=== PATIENT | male | born 1955 ===

== ENCOUNTER → 2017-07-15 | Outpatient (CLI) | payer OTHER ==
[~2017-07-15] MED LIST: CPR500T PO; KETO-22 PO; [UNRECOGNIZED DRUG - REMARK]
--- NOTE | 2017-07-15 10:30 | Diagnostic Imaging Report ---
PATIENT HISTORY: Back injury and bilateral shoulder injuries. TECHNIQUE: Two views of the right shoulder. COMPARISON: MRI from 10/18/2009. FINDINGS: No acute fracture or dislocation is seen in the right shoulder. Alignment appears normal. The imaged joint spaces are preserved. Mild irregularity is seen along the greater tuberosity, may represent rotator cuff injury. IMPRESSION: No acute osseous abnormality is seen in the right shoulder. Dictated by: Dictated on workstation # [id number]
--- NOTE | 2017-07-15 10:38 | Diagnostic Imaging Report ---
INDICATION: Back injury with bilateral shoulder injuries. TECHNIQUE: 3 views of the lumbar spine COMPARISON: None FINDINGS: There are 5 lumbar type vertebral bodies. There is minimal grade 1 retrolisthesis at L3-L4. Moderate disc height loss is seen at L5-S1. Small endplate osteophytes are seen at multiple levels, most pronounced at L4-L5. There is moderate facet arthropathy at the lower lumbar spine. The vertebral body heights are preserved. No acute fracture or dislocation is seen. IMPRESSION: 1. Ljrq-ek-lwadgblq degenerative changes in the lumbar spine with no acute osseous abnormality seen. Dictated by: Dictated on workstation # [id number]
== END ==
LOC: RAD 09:20
PROVIDERS: ATTEND Neuromusculoskeletal Medicine, Sports Medicine
DX: Z02.71 Encounter for disability determination (principal); S49.92XA Unspecified injury of left shoulder and upper arm, initial encounter; S49.91XA Unspecified injury of right shoulder and upper arm, initial encounter; S39.92XA Unspecified injury of lower back, initial encounter; M47.816 Spondylosis without myelopathy or radiculopathy, lumbar region
CPT/HCPCS: 72100; 73030

== ENCOUNTER 2021-04-19 10:37 | Emergency (ER) | payer MEDICARE ==
[~2021-04-19] VITALS: Ht 162 cm; Wt 68.0 kg
[2021-04-19 11:26] LABS: BASOPHILS % (AUTO) 0 % (0-10); EOSINOPHILS % (AUTO) 0 % (0-10); MONOCYTES # (AUTO) 0.4 10^3/uL (0.0-1.0); MONOCYTES % (AUTO) 7 % (0-12)
[2021-04-19 11:28] LABS: HEMATOCRIT 44 % (40-54); HEMOGLOBIN 14.9 g/dL (13.3-17.7); LYMPHOCYTES # (AUTO) 0.7 10^3/uL (1.0-4.0); LYMPHOCYTES % (AUTO) 13 % (12-44); MEAN CORPUSCULAR HEMOGLOBIN 30 pg (25-34); MEAN CORPUSCULAR HGB CONC 34 g/dL (32-36); MEAN CORPUSCULAR VOLUME 87 fL (80-99); MEAN PLATELET VOLUME 11.2 fL (9.0-12.2); NEUTROPHILS # (AUTO) 4.2 10^3/uL (1.8-7.8); NEUTROPHILS % (AUTO) 80 % (42-75); PLATELET COUNT 124 10^3/uL (130-400); WHITE BLOOD COUNT 5.3 10^3/uL (4.3-11.0)
[2021-04-19 11:29] LABS: ALBUMIN 3.9 GM/DL (3.2-4.5); POTASSIUM 4.3 MMOL/L (3.6-5.0)
[2021-04-19 11:30] LABS: CALCIUM 8.5 MG/DL (8.5-10.1)
[2021-04-19 11:32] LABS: TOTAL PROTEIN 6.9 GM/DL (6.4-8.2)
[2021-04-19 11:33] LABS: BILIRUBIN,TOTAL 0.4 MG/DL (0.1-1.0)
[2021-04-19 11:35] LABS: CREATININE SERUM 0.97 MG/DL (0.60-1.30)
[2021-04-19] MEDS ORDERED: fentaNYL INJ 100 MCG/2 ML AMP IVP ONE (11:45)
[2021-04-19] MEDS ORDERED: KETOROLAC 30 MG/ML VIAL IVP ONE (12:15)
--- NOTE | 2021-04-19 12:21 | ED General ---
General Chief Complaint: COVID19 Suspect/Confirmed Stated Complaint: COVID POSITIVE/STOMACH PAIN Nursing Triage Note: Pt ambulatory to ER, reports COVID+, symptoms onset 04/11, reports tomorow is last day of quarantine. Pt c/o generalized abd pain onset yesterday, denies N/V/D. Source of Information: Patient, Family Exam Limitations: Language Barrier (son acting as traffic personnel supervisor ) History of Present Illness Date Seen by Provider: Apr 19, 2021 Time Seen by Provider: 12:03 Allergies and Home Medications Allergies Coded Allergies: No Known Drug Allergies (Unverified , 08/23/11) Patient Home Medication List [Pain Med Rx] , (Reported) Entered as Reported by: MALDONADO PARISH on 08/23/11 8903 Past Vkmimrt-Utyfst-Kfcays Hx Patient Social History Tobacco Use?: No Use of E-Cig and/or Vaping dev: No Substance use?: No Alcohol Use?: No Pt feels they are or have been: No Physical Exam Vital Signs Vital Signs - First Documented 04/19/21 10:57 Temp 35.4 Pulse 64 Resp 18 B/P (MAP) 119/62 (81) Pulse Ox 97 O2 Delivery Room Air Capillary Refill : Height, Weight, BMI Height: 5'8" Weight: 160lbs. oz. 72.401671pp; 25.00 BMI Method:Stated Progress/Results/Core Measures Suspected Sepsis SIRS Temperature: Pulse: 64 Respiratory Rate: 18 Laboratory Tests 04/19/21 11:06: White Blood Count 5.3 Blood Pressure 119 /62 Mean: 80 Laboratory Tests 04/19/21 11:06: Creatinine 0.97, Platelet Count 124L, Total Bilirubin 0.4 Results/Orders Lab Results Laboratory Tests Test 04/19/21 11:06 04/19/21 12:28 Range/Units White Blood Count 5.3 4.3-11.0 10^3/uL Red Blood Count 5.03 4.30-5.52 10^6/uL Hemoglobin 14.9 13.3-17.7 g/dL Hematocrit 44 40-54 % Mean Corpuscular Volume 87 80-99 fL Mean Corpuscular Hemoglobin 30 25-34 pg Mean Corpuscular Hemoglobin Concent 34 32-36 g/dL Red Cell Distribution Width 12.7 10.0-14.5 % Platelet Count 124 L 130-400 10^3/uL Mean Platelet Volume 11.2 9.0-12.2 fL Immature Granulocyte % (Auto) 0 % Neutrophils (%) (Auto) 80 H 42-75 % Lymphocytes (%) (Auto) 13 12-44 % Monocytes (%) (Auto) 7 0-12 % Eosinophils (%) (Auto) 0 0-10 % Basophils (%) (Auto) 0 0-10 % Neutrophils # (Auto) 4.2 1.8-7.8 10^3/uL Lymphocytes # (Auto) 0.7 L 1.0-4.0 10^3/uL Monocytes # (Auto) 0.4 0.0-1.0 10^3/uL Eosinophils # (Auto) 0.0 0.0-0.3 10^3/uL Basophils # (Auto) 0.0 0.0-0.1 10^3/uL Immature Granulocyte # (Auto) 0.0 0.0-0.1 10^3/uL Percent Immature Platelet Fraction 4.8 0.0-7.6 % Sodium Level 132 L 135-145 MMOL/L Potassium Level 4.3 3.6-5.0 MMOL/L Chloride Level 98 98-107 MMOL/L Carbon Dioxide Level 24 21-32 MMOL/L Anion Gap 10 5-14 MMOL/L Blood Urea Nitrogen 14 7-18 MG/DL Creatinine 0.97 0.60-1.30 MG/DL Estimat Glomerular Filtration Rate 77 BUN/Creatinine Ratio 14 Glucose Level 123 H 70-105 MG/DL Calcium Level 8.5 8.5-10.1 MG/DL Corrected Calcium 8.6 8.5-10.1 MG/DL Total Bilirubin 0.4 0.1-1.0 MG/DL Aspartate Amino Transf (AST/SGOT) 19 5-34 U/L Alanine Aminotransferase (ALT/SGPT) 17 0-55 U/L Alkaline Phosphatase 66 40-136 U/L Troponin I < 0.028 <0.028 NG/ML C-Reactive Protein High Sensitivity 6.93 H 0.00-0.50 MG/DL Total Protein 6.9 6.4-8.2 GM/DL Albumin 3.9 3.2-4.5 GM/DL Urine Color YELLOW Urine Clarity CLEAR Urine pH 6.0 5-9 Urine Specific [place] <=1.005 1.016-1.022 Urine Protein NEGATIVE NEGATIVE Urine Glucose (UA) NEGATIVE NEGATIVE Urine Ketones NEGATIVE NEGATIVE Urine Nitrite NEGATIVE NEGATIVE Urine Bilirubin NEGATIVE NEGATIVE Urine Urobilinogen 0.2 < = 1.0 MG/DL Urine Leukocyte Esterase NEGATIVE NEGATIVE Urine RBC (Auto) NEGATIVE NEGATIVE Urine RBC NONE /HPF Urine WBC NONE /HPF Urine Crystals NONE /LPF Urine Bacteria NEGATIVE /HPF Urine Casts NONE /LPF Urine Mucus NEGATIVE /LPF Urine Culture Indicated NO My Orders Orders - YOAV PETERSON APRN Cbc With Automated Diff (04/19/21 11:18) Comprehensive Metabolic Panel (04/19/21 11:18) Ua Culture If Indicated (04/19/21 11:18) Hs C Reactive Protein (04/19/21 11:18) Fentanyl Inj (Sublimaze Injection) (04/19/21 11:45) Troponin I (04/19/21 11:44) Chest 1 View, Ap/Pa Only (04/19/21 11:44) Ekg Tracing (04/19/21 11:44) Ed Iv/Invasive Line Start (04/19/21 11:44) Ketorolac Injection (Toradol Injection) (04/19/21 12:15) Medications Given in ED Current Medications Medications Dose Ordered Sig/Sean Route Start Time Stop Time Status Last Admin Dose Admin Fentanyl Citrate 25 mcg ONCE ONCE IVP 04/19/21 11:45 04/19/21 11:46 DC 04/19/21 11:51 25 MCG Ketorolac Tromethamine 30 mg ONCE ONCE IVP 04/19/21 12:15 04/19/21 12:16 DC 04/19/21 12:21 30 MG Vital Signs/I&O 04/19/21 04/19/21 04/19/21 04/19/21 10:57 11:35 12:21 12:47 Temp 35.4 Pulse 64 67 62 58 Resp 18 18 18 18 B/P (MAP) 119/62 (81) 113/64 112/64 106/60 Pulse Ox 97 97 97 96 O2 Delivery Room Air Room Air Capillary Refill : Blood Pressure Mean: 80 Departure Impression Primary Impression: Neuralgia of abdomen Disposition: 01 HOME, SELF-CARE Condition: Improved Departure-Patient Inst. Decision time for Depature: 13:03 Referrals: KATHERINE MENDEZ MD (PCP) Primary Care Physician [facility] (Family) Primary Care Physician Patient Instructions: Neuropathic Pain Add. Discharge Instructions: Plan: 1. Follow up with your doctor next week. 2. Take your medications as directed and complete full course of Acyclovir. 3. May take Hydrocodone 5/325mg every 6 hours as needed for severe pain. 4. Return for any new, concerning, or worsening symptoms. All discharge instructions reviewed with patient and/or family. Voiced understanding. Scripts Hydrocodone/Acetaminophen (Hydrocodone-Acetamin 5-325 mg) 1 Each Tablet 1 TAB PO Q6H PRN for PAIN-MODERATE (5-7), #10 TAB 0 Refills Prov: YOAV PETERSON METROLOGIST 04/19/21 Acyclovir (Acyclovir) 800 Mg Tablet 800 MG PO Q4H for 7 Days, #35 TAB 0 Refills Prov: YOAV PETERSON METROLOGIST 04/19/21 YOAV PETERSON METROLOGIST Apr 19, 2021 12:21
[2021-04-19 12:35] LABS: BILIRUBIN,URINE NEGATIVE (NEGATIVE); CLARITY,URINE CLEAR; COLOR,URINE YELLOW; GLUCOSE, URINE (UA) NEGATIVE (NEGATIVE); KETONES,URINE NEGATIVE (NEGATIVE); LEUKOCYTE ESTERASE ,URINE NEGATIVE (NEGATIVE); NITRITE,URINE NEGATIVE (NEGATIVE); PROTEIN,URINE NEGATIVE (NEGATIVE)
[2021-04-19 12:41] LABS: BACTERIA,URINE NEGATIVE /HPF
--- NOTE | 2021-04-19 12:54 | Diagnostic Imaging Report ---
EXAM: CHEST 1 VIEW, AP/PA ONLY INDICATION: Chest pain. COMPARISON: 11/11/2011. FINDINGS: Normal heart size and pulmonary vascularity. No dense consolidation, pleural effusion or pneumothorax. No acute osseous findings. IMPRESSION: No acute cardiopulmonary findings. Dictated by: Dictated on workstation # [id number]
[2021-04-19] MEDS ORDERED: ACHD5005 PO (13:13)
[2021-04-19] MEDS ORDERED: ACYC-112 PO (13:13)
[2021-04-19 13:18] VITALS: BP 105/59
== END 2021-04-19 13:18 | disposition home or self-care (01) ==
LOC: EDUNIT# 10:37 → ER 10:39
DX: M79.2 Neuralgia and neuritis, unspecified (principal)
CPT/HCPCS: 36415; 71045; 80053; 81000; 84484; 85025; 86141; 93005

== ENCOUNTER 2021-04-23 17:42 | Inpatient (IN) | payer MEDICARE ==
[~2021-04-23] VITALS: Ht 162.6 cm; Wt 67.5 kg
[~2021-04-23 17:42] MED LIST changes: +ACHD5005 PO; +ACYC-112 PO
[2021-04-23] MEDS ORDERED: NS IV 1000 ML 1,000 ML IV SCH (19:45)
[2021-04-23] MEDS ORDERED: ACETAMINOPHEN 500 MG TAB (TYLENOL) PO PRN (19:45)
[2021-04-23] MEDS ORDERED: MELATONIN 3 MG TABLET PO PRN (19:45)
[2021-04-23] MEDS ORDERED: CALCIUM CARBONATE 500 MG (TUMS) TAB.CHEW PO PRN (19:45)
[2021-04-23] MEDS ORDERED: guaiFENesin/CODEINE (ROBITUSSIN AC) 10ML UDC PO PRN (19:45)
[2021-04-23] MEDS ORDERED: ONDANSETRON 4 MG (ZOFRAN) ORAL DISSOLVE TAB PO PRN (19:45)
[2021-04-23] MEDS ORDERED: ALPRAZolam 0.25 MG (XANAX) TAB PO PRN (19:45)
[2021-04-23] MEDS ORDERED: ONDANSETRON 4 MG/2 ML (SDV) Z0FRAN IVP PRN (19:45)
[2021-04-23] MEDS ORDERED: DOCUSATE SODIUM 100 MG (COLACE) CAP PO PRN (19:45)
[2021-04-23] MEDS ORDERED: LOPERAMIDE 2 MG (IMODIUM) TABLET PO PRN (19:45)
[2021-04-23] MEDS ORDERED: HYDROcodone/APAP 5 MG/325 MG (LORTAB) TAB PO PRN (19:45)
[2021-04-23] MEDS ORDERED: diphenhydrAMINE 25 MG TAB (BENADRYL) PO PRN (19:45)
[2021-04-23] MEDS ORDERED: morphine INJ 4 MG/ML 1 ML (VIAL/SYRINGE) IVP PRN (22:30)
[2021-04-23 22:37] LABS: BASOPHILS % (AUTO) 0 % (0-10); EOSINOPHILS % (AUTO) 0 % (0-10); HEMATOCRIT 40 % (40-54); HEMOGLOBIN 13.6 g/dL (13.3-17.7); LYMPHOCYTES # (AUTO) 0.4 10^3/uL (1.0-4.0); LYMPHOCYTES % (AUTO) 3 % (12-44); MEAN CORPUSCULAR HEMOGLOBIN 29 pg (25-34); MEAN CORPUSCULAR HGB CONC 34 g/dL (32-36); MEAN CORPUSCULAR VOLUME 85 fL (80-99); MEAN PLATELET VOLUME 10.2 fL (9.0-12.2); MONOCYTES # (AUTO) 0.2 10^3/uL (0.0-1.0); MONOCYTES % (AUTO) 2 % (0-12); NEUTROPHILS # (AUTO) 10.7 10^3/uL (1.8-7.8); NEUTROPHILS % (AUTO) 94 % (42-75); PLATELET COUNT 210 10^3/uL (130-400); WHITE BLOOD COUNT 11.4 10^3/uL (4.3-11.0)
[2021-04-23] MEDS: polyethylene glycoL POWDER 17 GM (MIRALAX) PACK PO SCH (22:43)
[2021-04-23] MEDS: SENNA W/DOCUSATE (SENOKOT S) TABLET PO SCH (22:44)
--- NOTE | 2021-04-23 22:46 | Diagnostic Imaging Report ---
INDICATION: Shortness of breath EXAM: Portable chest at 10:26 PM FINDINGS: There are bilateral perihilar infiltrates. There is no effusion. Heart size is normal. IMPRESSION: 1. Bilateral perihilar patchy alveolar infiltrates consistent with COVID pneumonia. Dictated by: Dictated on workstation # [id number]
[2021-04-23 22:52] LABS: POTASSIUM 4.4 MMOL/L (3.6-5.0)
[2021-04-23 22:53] LABS: ACANTHOCYTES MARKED; BURR CELLS SLIGHT; CALCIUM 8.4 MG/DL (8.5-10.1); LYMPHOCYTES % (MANUAL) 3 %; MONOCYTES % (MANUAL) 2 %; NEUTROPHILS % (MANUAL) 95 %
[2021-04-23 22:54] LABS: TOTAL PROTEIN 5.9 GM/DL (6.4-8.2)
[2021-04-23 22:56] LABS: BILIRUBIN,TOTAL 0.5 MG/DL (0.1-1.0)
[2021-04-23 22:58] LABS: CREATININE SERUM 0.79 MG/DL (0.60-1.30)
[2021-04-23 23:28] VITALS: BP 164/88
[2021-04-23] MEDS ORDERED: RT-ALBUTEROL HFA 8.5 GM INHALER IH PRN (23:45)
[2021-04-24] MEDS ORDERED: NS (IVPB) 50 ML ONE (00:31)
[2021-04-24] MEDS: CEFEPIME INJECTION 1,000 MG in NS (IVPB) 50 ML IV SCH ×4 (00:44→17:49)
[2021-04-24] MEDS ORDERED: METF-397 PO (02:01)
[2021-04-24] MEDS ORDERED: LOSA25TA41 PO (02:01)
[2021-04-24] MEDS ORDERED: ATOR40TA70 PO (02:01)
[2021-04-24] MEDS ORDERED: BUTA-235 PO (02:01)
[2021-04-24] MEDS: RT-ALBUTEROL HFA 8.5 GM INHALER IH SCH ×4 (04:29→21:31)
[2021-04-24 05:16] LABS: BASOPHILS % (AUTO) 0 % (0-10); EOSINOPHILS % (AUTO) 0 % (0-10); HEMATOCRIT 41 % (40-54); LYMPHOCYTES # (AUTO) 0.4 10^3/uL (1.0-4.0); LYMPHOCYTES % (AUTO) 5 % (12-44); MEAN CORPUSCULAR HEMOGLOBIN 29 pg (25-34); MEAN CORPUSCULAR HGB CONC 34 g/dL (32-36); MEAN CORPUSCULAR VOLUME 85 fL (80-99); MEAN PLATELET VOLUME 10.1 fL (9.0-12.2); MONOCYTES # (AUTO) 0.1 10^3/uL (0.0-1.0); MONOCYTES % (AUTO) 2 % (0-12); NEUTROPHILS # (AUTO) 6.5 10^3/uL (1.8-7.8); NEUTROPHILS % (AUTO) 93 % (42-75); PLATELET COUNT 203 10^3/uL (130-400)
[2021-04-24 05:25] LABS: ALBUMIN 2.8 GM/DL (3.2-4.5); POTASSIUM 4.1 MMOL/L (3.6-5.0)
[2021-04-24 05:26] LABS: CALCIUM 8.6 MG/DL (8.5-10.1)
[2021-04-24 05:28] LABS: TOTAL PROTEIN 5.7 GM/DL (6.4-8.2)
[2021-04-24 05:29] LABS: BILIRUBIN,TOTAL 0.4 MG/DL (0.1-1.0)
[2021-04-24 05:31] LABS: CREATININE SERUM 0.7 MG/DL (0.60-1.30); PHOSPHORUS 4.2 MG/DL (2.3-4.7)
[2021-04-24] MEDS ORDERED: KCL 20 MEQ TAB (K-DUR) PO SCH (06:00)
[2021-04-24] MEDS ORDERED: MAGNESIUM 1 GM/100 ML IVPB 100 ML IV SCH (06:00)
[2021-04-24] MEDS ORDERED: POTASSIUM CL 10MEQ/50ML IVPB 50 ML IV SCH (06:00)
--- NOTE | 2021-04-24 07:03 | History & Physical-Hospitalist ---
History of Present Illness HPI/Chief Complaint CC: Respiratory failure HPI: This is a 66yo male who presented with Covid-19 pneumonia to the [place] [facility]. He was so hypoxic that he appeared to be close to respiratory failure so he was moved from [facility]. Overall he is doing very well and remains on Vapotherm. He is doing much better and we will transfer him to the fourth floor. Source: patient Exam Limitations: language barrier Date Seen 04/24/21 Time Seen by a Provider: 11:30 Attending Physician Donna Romano Holly R MD Referring Physician Date of Admission Apr 23, 2021 at 22:12 Home Medications & Allergies Home Medications Reviewed patient Home Medication Reconciliation performed by pharmacy medication reconciliations pollution control technician and/or nursing. Patients Allergies have been reviewed. Allergies Allergies Coded Allergies No Known Drug Allergies (Unverified08/23/11) Past Cqxmone-Evbucu-Cvekoc Hx Patient Social History Marrital Status: single Employed/Student: retired Tobacco Use?: No Tobacco type used: Cigarettes Smoking Status: Current Someday Smoker Pt feels they are or have been: No Current Status Advance Directives: No Communicates: Verbally Primary Language: Ivorian Preferred Spoken Language: Ivorian Past Medical History Diabetes, Non-Insulin dep Review of Systems Constitutional: see HPI EENTM: no symptoms reported Respiratory: dyspnea on exertion Cardiovascular: no symptoms reported Gastrointestinal: no symptoms reported Genitourinary: no symptoms reported Musculoskeletal: no symptoms reported Skin: no symptoms reported Psychiatric/Neurological: No Symptoms Reported All Other Systems Reviewed Negative Unless Noted: Yes Physical Exam Physical Exam Vital Signs Vital Signs - First Documented 04/23/21 04/23/21 22:44 23:28 Temp 35.6 FiO2 24 Capillary Refill : Less Than 3 Seconds Height, Weight, BMI Height: 5'8" Weight: 160lbs. oz. 72.149461gx; 25.56 BMI Method:Stated General Appearance: No Apparent Distress, Anxious, Chronically ill Eyes: Right Eye Normal Inspection, Right Eye PERRL HEENT: PERRL/EOMI, Normal ENT Inspection, Pharynx Normal, Moist Mucous Membranes Neck: Full Range of Motion, Normal Inspection, Non Tender Respiratory: Chest Non Tender, Lungs Clear, Normal Breath Sounds, No Accessory Muscle Use, No Respiratory Distress, Decreased Breath Sounds Cardiovascular: Regular Rate, Rhythm, No Edema, No Gallop, No JVD, No Murmur, Normal Peripheral Pulses Gastrointestinal: Normal Bowel Sounds, No Organomegaly, No Pulsatile Mass, Non Tender, Soft Back: Normal Inspection, No CVA Tenderness, No Vertebral Tenderness Extremity: Normal Capillary Refill, Normal Inspection, Normal Range of Motion, Non Tender, No Calf Tenderness, No Pedal Edema Neurologic/Psychiatric: Alert, Oriented x3, No Motor/Sensory Deficits, Normal Mood/Affect Skin: Normal Color, Warm/Dry Lymphatic: No Adenopathy Results Results/Procedures Labs Laboratory Tests 04/23/21 22:29 04/24/21 05:00 Patient resulted labs reviewed. Assessment/Plan Admission Diagnosis Assessment: Acute hypoxic respiratory failure COVID-19 pneumonia Diabetes Smoker Plan: Transfer to fourth floor Supportive care Admission Status: Inpatient Order (span 2 midnights) Reason for Inpatient Admission: COVID-19 DONNA ROMANO DO Apr 24, 2021 07:03
[2021-04-24] MEDS ORDERED: AZITHROMYCIN INJECTION 500 MG in NS (IVPB) 250 ML IV SCH (09:00)
[2021-04-24] MEDS: FAMOTIDINE 20MG/2ML IV (PEPCID) IVP SCH ×3 (09:01→21:04)
[2021-04-24] MEDS: SENNA W/DOCUSATE (SENOKOT S) TABLET PO SCH ×2 (09:01→21:00)
[2021-04-24] MEDS: polyethylene glycoL POWDER 17 GM (MIRALAX) PACK PO SCH ×2 (09:01→21:00)
[2021-04-24] MEDS ORDERED: ASPI-1238 PO (15:57)
[2021-04-24] MEDS ORDERED: METF-478 PO (15:57)
[2021-04-24] MEDS ORDERED: TIZA-186 PO (15:57)
[2021-04-24] MEDS ORDERED: ACYC-112 PO (16:00)
[2021-04-24] MEDS ORDERED: ACET/BUTAL/CAFF (FIORICET) TAB PO PRN (21:00)
[2021-04-24] MEDS: ENOXAPARIN 40 MG/0.4 ML (LOVENOX) SYR SC SCH (21:04)
[2021-04-25] MEDS: CEFEPIME INJECTION 1,000 MG in NS (IVPB) 50 ML IV SCH ×2 (00:21→05:04)
[2021-04-25] MEDS: RT-ALBUTEROL HFA 8.5 GM INHALER IH SCH ×4 (02:41→21:48)
[2021-04-25 05:32] LABS: BASOPHILS % (AUTO) 0 % (0-10); EOSINOPHILS % (AUTO) 0 % (0-10); HEMATOCRIT 38 % (40-54); HEMOGLOBIN 13.2 g/dL (13.3-17.7); LYMPHOCYTES # (AUTO) 0.6 10^3/uL (1.0-4.0); LYMPHOCYTES % (AUTO) 7 % (12-44); MEAN CORPUSCULAR HEMOGLOBIN 29 pg (25-34); MEAN CORPUSCULAR HGB CONC 35 g/dL (32-36); MEAN CORPUSCULAR VOLUME 84 fL (80-99); MEAN PLATELET VOLUME 10.7 fL (9.0-12.2); MONOCYTES # (AUTO) 0.5 10^3/uL (0.0-1.0); MONOCYTES % (AUTO) 6 % (0-12); NEUTROPHILS # (AUTO) 7.7 10^3/uL (1.8-7.8); NEUTROPHILS % (AUTO) 87 % (42-75); PLATELET COUNT 273 10^3/uL (130-400); WHITE BLOOD COUNT 8.8 10^3/uL (4.3-11.0)
[2021-04-25 05:35] LABS: ALBUMIN 2.8 GM/DL (3.2-4.5); POTASSIUM 3.9 MMOL/L (3.6-5.0)
[2021-04-25 05:36] LABS: CALCIUM 8.6 MG/DL (8.5-10.1)
[2021-04-25 05:37] LABS: TOTAL PROTEIN 5.7 GM/DL (6.4-8.2)
[2021-04-25 05:39] LABS: BILIRUBIN,TOTAL 0.3 MG/DL (0.1-1.0)
[2021-04-25 05:41] LABS: CREATININE SERUM 0.79 MG/DL (0.60-1.30)
[2021-04-25] MEDS: ASPIRIN E.C. 81 MG (ECOTRIN) TAB PO SCH (09:20)
[2021-04-25] MEDS: FAMOTIDINE 20MG/2ML IV (PEPCID) IVP SCH ×2 (09:20→21:21)
[2021-04-25] MEDS: LOSARTAN 25 MG (COZAAR) TAB PO SCH (09:20)
[2021-04-25] MEDS: CEFDINIR 300 MG (OMNICEF) CAP PO SCH ×2 (09:45→21:22)
[2021-04-25] MEDS: polyethylene glycoL POWDER 17 GM (MIRALAX) PACK PO SCH ×2 (09:45→21:22)
[2021-04-25] MEDS: SENNA W/DOCUSATE (SENOKOT S) TABLET PO SCH ×2 (10:05→21:22)
--- NOTE | 2021-04-25 12:48 | Progress Note - Hospitalist ---
Subjective HPI/CC On Admission Date Seen by Provider: Apr 25, 2021 Time Seen by Provider: 11:00 CC: Respiratory failure HPI: This is a 66yo male who presented with Covid-19 pneumonia to the [place] ER. He was so hypoxic that he appeared to be close to respiratory failure so he was moved from [facility]. Overall he is doing very well and remains on Vapotherm. He is doing much better and we will transfer him to the fourth floor. Subjective/Events-last exam Pt doing remarkably well Will do a home oxygen evaluation Blood sugar is high from Decadron Overall doing much better Discharge planned for tomorrow Review of Systems General: Fatigue Pulmonary: Dyspnea Focused Exam Lactate Level 04/23/21 22:29: Lactic Acid Level 0.93 Objective Exam Vital Signs Vital Signs Date Time Temp Pulse Resp B/P (MAP) Pulse Ox O2 Delivery O2 Flow Rate FiO2 04/26/21 03:17 94 Room Air 04/26/21 03:06 35.8 55 20 133/63 04/24/21 14:31 1.00 04/23/21 23:28 24 Capillary Refill : Less Than 3 Seconds General Appearance: No Apparent Distress, WD/WN, Chronically ill Respiratory: Lungs Clear, Normal Breath Sounds Cardiovascular: Regular Rate, Rhythm Neurologic/Psychiatric: Alert, Oriented x3, No Motor/Sensory Deficits, Normal Mood/Affect Results/Procedures Lab Laboratory Tests 04/26/21 04:15 Patient resulted labs reviewed. Assessment/Plan Assessment and Plan Assess & Plan/Chief Complaint Assessment: Acute hypoxic respiratory failure COVID-19 pneumonia Diabetes Plan: Home O2 evaluation Discharge tomorrow LISE ROMAN DO Apr 25, 2021 12:48
[2021-04-25] MEDS ORDERED: glyBURIDE 2.5 MG (MICRONASE) TAB PO ONE (13:00)
[2021-04-25] MEDS: inSUlin ASPART (NovoLOG) 1 UNIT/0.01 ML (CHARGE PER UNIT) SC SCH ×3 (13:06→21:22)
[2021-04-25] MEDS ORDERED: metFORMIN XR 500 MG (GLUCOPHAGE XR) TAB PO SCH (18:00)
[2021-04-25] MEDS: ENOXAPARIN 40 MG/0.4 ML (LOVENOX) SYR SC SCH (21:22)
[2021-04-26] MEDS: RT-ALBUTEROL HFA 8.5 GM INHALER IH SCH ×2 (03:18→09:47)
[2021-04-26 04:25] LABS: BASOPHILS % (AUTO) 0 % (0-10); EOSINOPHILS % (AUTO) 0 % (0-10); HEMATOCRIT 36 % (40-54); HEMOGLOBIN 12.5 g/dL (13.3-17.7); LYMPHOCYTES # (AUTO) 0.7 10^3/uL (1.0-4.0); LYMPHOCYTES % (AUTO) 7 % (12-44); MEAN CORPUSCULAR HEMOGLOBIN 29 pg (25-34); MEAN CORPUSCULAR HGB CONC 35 g/dL (32-36); MEAN CORPUSCULAR VOLUME 85 fL (80-99); MEAN PLATELET VOLUME 10.3 fL (9.0-12.2); MONOCYTES # (AUTO) 0.6 10^3/uL (0.0-1.0); MONOCYTES % (AUTO) 6 % (0-12); NEUTROPHILS % (AUTO) 85 % (42-75); PLATELET COUNT 293 10^3/uL (130-400); WHITE BLOOD COUNT 9.4 10^3/uL (4.3-11.0)
[2021-04-26 04:37] LABS: ALBUMIN 2.8 GM/DL (3.2-4.5)
[2021-04-26 04:38] LABS: CALCIUM 8.8 MG/DL (8.5-10.1)
[2021-04-26 04:39] LABS: TOTAL PROTEIN 5.5 GM/DL (6.4-8.2)
[2021-04-26 04:41] LABS: BILIRUBIN,TOTAL 0.3 MG/DL (0.1-1.0)
[2021-04-26 04:43] LABS: CREATININE SERUM 0.82 MG/DL (0.60-1.30)
[2021-04-26] MEDS: inSUlin ASPART (NovoLOG) 1 UNIT/0.01 ML (CHARGE PER UNIT) SC SCH ×2 (05:44→11:31)
[2021-04-26] MEDS ORDERED: glyBURIDE 2.5 MG (MICRONASE) TAB PO SCH (06:30)
[2021-04-26] MEDS ORDERED: dexAMETHasone 6 MG TAB (DECADRON) PO SCH (07:00)
[2021-04-26] MEDS: ASPIRIN E.C. 81 MG (ECOTRIN) TAB PO SCH (09:38)
[2021-04-26] MEDS: CEFDINIR 300 MG (OMNICEF) CAP PO SCH (09:38)
[2021-04-26] MEDS: SENNA W/DOCUSATE (SENOKOT S) TABLET PO SCH (09:38)
[2021-04-26] MEDS: FAMOTIDINE 20MG/2ML IV (PEPCID) IVP SCH (09:38)
[2021-04-26] MEDS: LOSARTAN 25 MG (COZAAR) TAB PO SCH (09:38)
[2021-04-26] MEDS: polyethylene glycoL POWDER 17 GM (MIRALAX) PACK PO SCH (09:40)
[2021-04-26] MEDS ORDERED: CEFD300C3 PO (11:52)
[2021-04-26] MEDS ORDERED: GLBR2.5T PO (11:52)
[2021-04-26] MEDS ORDERED: DEXA6TAB PO (11:52)
[2021-04-26] MEDS ORDERED: FAMO20TA5 PO (11:52)
--- NOTE | 2021-04-26 11:53 | Discharge Summary ---
Discharge Summary Hospital Course Was the Problem List Reviewed?: Yes Problems/Dx: (1) COVID-19 Hospital Course Date of Admission: Apr 23, 2021 at 22:12 Admission Diagnosis : Family Physician/Provider: [facility] [place] Date of Discharge: 04/26/21 Discharge Diagnosis: Acute hypoxic respiratory failure, COVID-19 pneumonia, diabetes Hospital Course: Hospital Course: Pt had a standard hospital course when he was admitted for Covid-19 pneumonia and hypoxia. He weaned off oxygen, maintiend on Decadron and IV antibiotics. He did well, did not require home oxygen and he was discharged home in improved condition. Labs and Pending Lab Test: Laboratory Tests 04/25/21 12:23: Glucometer 348H 04/25/21 15:41: Glucometer 304H 04/25/21 20:07: Glucometer 240H 04/26/21 04:15: White Blood Count 9.4, Red Blood Count 4.25L, Hemoglobin 12.5L, Hematocrit 36L, Mean Corpuscular Volume 85, Mean Corpuscular Hemoglobin 29, Mean Corpuscular Hemoglobin Concent 35, Red Cell Distribution Width 12.7, Platelet Count 293, Mean Platelet Volume 10.3, Immature Granulocyte % (Auto) 1, Neutrophils (%) (Auto) 85H, Lymphocytes (%) (Auto) 7L, Monocytes (%) (Auto) 6, Eosinophils (%) (Auto) 0, Basophils (%) (Auto) 0, Neutrophils # (Auto) 8.0H, Lymphocytes # (Auto) 0.7L, Monocytes # (Auto) 0.6, Eosinophils # (Auto) 0.0, Basophils # (Auto) 0.0, Immature Granulocyte # (Auto) 0.1, Sodium Level 142, Potassium Level 4.0, Chloride Level 110H, Carbon Dioxide Level 20L, Anion Gap 12, Blood Urea Nitrogen 21H, Creatinine 0.82, Estimat Glomerular Filtration Rate 94, BUN/Creatinine Ratio 26, Glucose Level 222H, Calcium Level 8.8, Corrected Calcium 9.8, Total Bilirubin 0.3, Aspartate Amino Transf (AST/SGOT) 62H, Alanine Aminotransferase (ALT/SGPT) 80H, Alkaline Phosphatase 69, Total Protein 5.5L, Albumin 2.8L 04/26/21 10:23: Glucometer 223H Microbiology 04/23/21 MRSA Screen - Final, Complete MRSA not isolated Home Meds Active Reported Acyclovir 800 Mg Tablet 800 Mg PO Q4H FILLED 04-20-2021 #35 Tizanidine HCl 4 Mg Tablet 4 Mg PO HS PRN Aspirin EC (Aspirin) 81 Mg Tablet.dr 81 Mg PO DAILY Metformin HCl ER (Metformin HCl) 500 Mg Tab.er.24 2,000 Mg PO 1800 W/MEAL TAKES 4 (500MG) TABS LAST FILLED 10-10-2020 #360/90 DAY SUPPLY Atorvastatin Calcium 40 Mg Tablet 40 Mg PO DAILY LAST FILLED 10-10-2020 #90/90 DAY SUPPLY Hrbkfy-Ibfrlfmi-Tfdx 50-325-40 (Butalb/Acetaminophen/Caffeine) 1 Each Tablet 1 Each PO Q6H PRN Losartan Potassium 25 Mg Tablet 25 Mg PO DAILY Assessment/Pt Instructions PCP in 1 week Discharge Planning: <30 minutes discharge planning Discharge Instructions Discharge Diet: ADA Diet Discharge Physical Examination Vital Signs Vital Signs Date Time Temp Pulse Resp B/P (MAP) Pulse Ox O2 Delivery O2 Flow Rate FiO2 04/26/21 11:24 36.4 56 20 159/74 94 Room Air 04/24/21 14:31 1.00 04/23/21 23:28 24 General Appearance: No Apparent Distress, WD/WN, Chronically ill Allergies: Coded Allergies: No Known Drug Allergies (Unverified , 08/23/11) Discharge Summary Date of Admission Apr 23, 2021 at 22:12 Date of Discharge Discharge Date: Apr 26, 2021 Admission Diagnosis Assessment: Acute hypoxic respiratory failure COVID-19 pneumonia Diabetes Smoker Plan: Transfer to fourth floor Supportive care Discharge Diagnosis Assessment: Acute hypoxic respiratory failure COVID-19 pneumonia Diabetes Plan: Home O2 evaluation Discharge tomorrow LISE ROMAN DO Apr 26, 2021 11:53
[2021-04-26] MEDS ORDERED: FAMOTIDINE 20 MG (PEPCID) TABLET PO SCH (21:00)
== END 2021-04-26 13:45 | disposition home or self-care (01) | DRG 177 ==
LOC: CSD 22:12 → ICU 22:14 → 4TH 04-24 16:45
PROVIDERS: ADMIT Internal Medicine; ATTEND Internal Medicine
PROC: 5A0935A Assistance with Respiratory Ventilation, Less than 24 Consecutive Hours, High Flow/Velocity Cannula (ICD-10-PCS; principal; 2021-04-24)
DX: U07.1 COVID-19 (principal); J12.82 Pneumonia due to coronavirus disease 2019; J96.01 Acute respiratory failure with hypoxia; E11.65 Type 2 diabetes mellitus with hyperglycemia; T38.0X5A Adverse effect of glucocorticoids and synthetic analogues, initial encounter; F17.210 Nicotine dependence, cigarettes, uncomplicated; Z79.899 Other long term (current) drug therapy; Z79.82 Long term (current) use of aspirin; Z79.84 Long term (current) use of oral hypoglycemic drugs; Z73.0 Burn-out
CPT/HCPCS: 36415; 71045; 80053; 82947; 83605; 83735; 84100; 85007; 85025; 85027; 87081; 94640; 94760; 94761